=== PATIENT | female | born 1950 | race Caucasian/White ===

== ENCOUNTER 2018-06-04 22:20 | Observation (INO) | payer BC, MEDICARE ==
[~2018-06-04] VITALS: Ht 172.7 cm; Wt 71.2 kg
[~2018-06-04 22:20] MED LIST: AMBIEN5 MG PO; AMITRIPTYLINE H10 MG PO; ASPIR-LOW81 MG PO; ATORVASTATIN CA10 MG PO; BIOTIN PO; CALCIUM 1,0001 EACH PO; CARAFATE1 GM/10 ML PO; CLONAZEPAM0.5 MG PO; DEXAMETHASONE4 MG PO; ESTRODIOL PO; FISH OIL 1,0001 EAC2 PO; HYDROCHLOROTH12.5 MG PO; LEVAQUIN500 MG PO; LEVOTHYROXINE88 MCG PO; LIZNESS PO; LYRICA50 MG PO; MELOXICAM7.5 MG PO; METOPROLOL TART50 MG PO; MULTI-VITAMIN1 EACH PO; PANTOPRAZOLE SO40 MG PO; SPIRONOLACTONE25 MG PO; SYNTHROID100 MCG PO; XIFAXAN550 MG PO; ZANTAC300 MG PO
--- OUTSIDE RECORDS SUMMARY | 2018-06-04 22:22 | XMS REPORT ---
Author Author [facility] Address Unknown Phone Unavailable Care Team Providers Care Chief Human Resources Officer Name Role Phone Lyn LAL Unavailable Unavailable Problems This patient has no known problems. Allergies, Adverse Reactions, Alerts This patient has no known allergies or adverse reactions. Medications This patient has no known medications. Results Test Description Test Time Test Comments Text Results Atomic Results Result Comments CHEST SINGLE (PORTABLE) [place] [address] Patient Name: LORELEI TSANG MR #: [id number] : 1950 Age/Sex: 66/F Req #: [id number] Adm Physician: Ordered by: GISELL LAL MD Report #: [id number] Location: ER Room/Bed: Procedure: [id number] DX/CHEST SINGLE (PORTABLE) Exam Date: 03/15/17 Exam Time: 1552 REPORT STATUS: Signed PROCEDURE: A single AP view of the chest. COMPARISON: Chest radiograph 11/06/2016 and 03/11/2013 INDICATIONS: RAPID HEART RATE FINDINGS: Lines/tubes: None. Lungs: The lungs are well inflated. A new nodular 1.1 cm opacity projects over the left upper lobe between the 4th and 5th ribs. Lungs are otherwise clear. Pleura: There is no pleural effusion or pneumothorax. Heart and mediastinum: The heart and the mediastinum are unremarkable. Bones: No acute bony abnormality. IMPRESSION: New 1.1 cm nodular opacity projects over the left upper lobe and may represent a pulmonary nodule. Consider chest CT for further evaluation. Otherwise, no acute cardiopulmonary disease. Dictated by: Carlos Burciaga M.D. on 03/15/2017 at 16:11 Electronically approved by: Carlos Burciaga M.D. on 03/15/2017 at 16:11 Dictated By: CARLOS BURCIAGA MD [id number] Transcribed By: HERNAN on 03/15/17 1611 COPY TO: GISELL LAL MD
[2018-06-04] MEDS ORDERED: ONDANSETRON HCL INJ 2MG/ML 2ML 2 MG/ML VIAL IV STA (22:26)
[2018-06-04] MEDS ORDERED: NITROGLYCERIN 2% OINT 1 GM PKT TOP ONE (22:30)
[2018-06-04] MEDS ORDERED: ONDANSETRON HCL INJ 2MG/ML 2ML 2 MG/ML VIAL ONE (22:34)
[2018-06-04 22:41] LABS: BASOPHILS # (AUTO) 0.1 (0.0-0.1); BASOPHILS % 1.1 % (0.0-1.0); EOSINOPHILS # (AUTO) 0.2 (0.0-0.4); EOSINOPHILS % 2.4 % (0.0-6.0); HEMATOCRIT 40.4 % (34.2-44.1); HEMOGLOBIN 13.5 g/dL (12.0-16.0); LYMPHOCYTES # (AUTO) 2.3 (1.0-3.2); LYMPHOCYTES % 36.2 % (18.0-39.1); MEAN CORPUSCULAR HEMOGLOBIN 31.2 pg (28-32); MEAN CORPUSCULAR HGB CONC 33.4 g/dL (31-35); MEAN CORPUSCULAR VOLUME 93.3 fL (81-99); MONOCYTES # (AUTO) 0.4 (0.2-0.8); NEUTROPHILS # (AUTO) 3.4 (2.1-6.9); NEUTROPHILS % 53.1 % (38.7-80.0); PLATELET COUNT 305 x10e3/uL (140-360); RED BLOOD COUNT 4.33 x10e6/uL (3.6-5.1); RED CELL DISTRIBUTION WIDTH 13.6 % (11.7-14.4)
[2018-06-04 22:50] LABS: INR 0.82; PROTHROMBIN TIME 12.1 seconds (11.9-14.5)
[2018-06-04 22:51] LABS: PARTIAL THROMBOPLASTIN TIME 33.6 seconds (23.8-35.5)
[2018-06-04 22:52] LABS: BILIRUBIN,URINE NEGATIVE (NEGATIVE); CLARITY,URINE CLEAR (CLEAR); COLOR,URINE YELLOW (YELLOW); KETONES,URINE NEGATIVE (NEGATIVE); LEUKOCYTE ESTERASE ,URINE NEGATIVE (NEGATIVE); NITRITE,URINE NEGATIVE (NEGATIVE); PROTEIN,URINE DIPSTICK NEGATIVE (NEGATIVE); URINE UROBILINOGEN 0.2 mg/dL (0.2 - 1)
[2018-06-04 22:55] LABS: BACTERIA,URINE FEW /HPF; EPITHELIAL CELLS,URINE FEW /LPF; RBC,URINE 0-5 /HPF (0-5); WBC,URINE (MAN) 0-5 /HPF (0-5)
[2018-06-04 23:00] LABS: ALANINE AMINOTRANSFERASE 13 IU/L (0-55); ALBUMIN 4.2 g/dL (3.5-5.0); ALBUMIN/GLOBULIN RATIO 1.4 (0.8-2.0); ALKALINE PHOSPHATASE 67 IU/L (40-150); ANION GAP 16.4 mmol/L (8-16); BLOOD UREA NITROGEN 8 mg/dL (7-26); BUN/CREATININE RATIO 11 (6-25); CALCIUM 9.5 mg/dL (8.4-10.2); CARBON DIOXIDE 21 mmol/L (22-29); CHLORIDE 101 mmol/L (98-107); CREATINE KINASE 39 IU/L (29-168); CREATININE, SERUM 0.73 mg/dL (0.57-1.11); EST GLOMERULAR FILTRATION RATE > 60 ML/MIN (60-); GLUCOSE 111 mg/dL (74-118); POTASSIUM 3.4 mmol/L (3.5-5.1); SODIUM 135 mmol/L (136-145)
[2018-06-04] MEDS ORDERED: BIOTIN800 MCG PO (23:37)
[2018-06-04] MEDS ORDERED: B COMPLEX1 EACH PO (23:37)
[2018-06-04] MEDS ORDERED: RANITIDINE HCL150 MG PO (23:37)
[2018-06-04] MEDS ORDERED: CO Q-10 100 MG1 EACH PO (23:38)
[2018-06-04] MEDS ORDERED: MAGNESIUM OXID400 MG PO (23:38)
[2018-06-04] MEDS ORDERED: [UNRECOGNIZED DRUG - OTHER] OU (23:41)
[2018-06-04] MEDS ORDERED: XIIDRA OU (23:41)
[2018-06-04] MEDS ORDERED: POTASSIUM CHLORIDE 20 MEQ TAB CR PO STA (23:51)
[2018-06-05] VITALS (8 sets, daily range): BP systolic 132–158; BP diastolic 67–78
[2018-06-05] MEDS ORDERED: NITROGLYCERIN 0.4 MG SUBL SL PRN
[2018-06-05] MEDS ORDERED: ONDANSETRON HCL INJ 2MG/ML 2ML 2 MG/ML VIAL IV PRN
[2018-06-05] MEDS ORDERED: [UNRECOGNIZED DRUG - OTHER] OU SCH
[2018-06-05] MEDS ORDERED: FAMOTIDINE 20 MG/2 ML VIAL IV SCH
[2018-06-05] MEDS ORDERED: SUCRALFATE 1 GM/10 ML SUSP PO PRN
--- NOTE | 2018-06-05 00:04 | Diagnostic Imaging Report ---
CHEST SINGLE (PORTABLE), 06/04/2018 10:24 PM Technique: CHEST SINGLE (PORTABLE) Comparison: 03/15/2017 Clinical history: Chest pain Findings: See Impression Impression: Limited portable technique. 1. Stable/normal cardiomediastinal silhouette. 2. No consolidation or edema. Previously measured left upper lung nodule is not appreciated but may be obscured by technique/overlying lead. Consider follow-up upright PA and lateral. 3. No effusion or pneumothorax. Signed by: Dr Eloise Jolley MD on 06/05/2018 12:01 AM
[2018-06-05] MEDS ORDERED: ARTIFICIAL TEARS (OPTH) 15 ML BTL OU PRN (00:35)
[2018-06-05 05:47] LABS: CHOL/HDL RATIO 3.4 (3.0-3.6)
[2018-06-05] MEDS ORDERED: NITROGLYCERIN 2% OINT 1 GM PKT TOP SCH (06:00)
[2018-06-05 07:32] LABS: CREATINE KINASE MB 0.5 ng/mL (0-5.0)
--- NOTE | 2018-06-05 08:10 | NUR ---
patient resting in bed, not in any distress call light in reach
[2018-06-05] MEDS: ASPIRIN 81 MG ENTERIC COATED PO SCH (08:20)
[2018-06-05] MEDS: MAGNESIUM OXIDE 400 MG TAB PO SCH (08:20)
[2018-06-05] MEDS: MULTIVITAMINS/MINERALS TAB PO SCH (08:20)
[2018-06-05] MEDS ORDERED: NON-FORMULARY MEDICATION (Vitamin B Complex (B Complex) 1 TAB) PO SCH (09:00)
[2018-06-05] MEDS: VIT E ACETATE PO SCH (09:00)
[2018-06-05] MEDS: XIIDRA OU SCH ×2 (09:00→16:44)
[2018-06-05] MEDS ORDERED: NON-FORMULARY MEDICATION (Biotin 1,000 MCG) PO SCH (09:00)
[2018-06-05] MEDS ORDERED: VIT E ACETATE PO SCH (09:00)
[2018-06-05] MEDS ORDERED: BIOTIN 1000 MCG PO SCH (09:00)
[2018-06-05] MEDS ORDERED: LEVOTHYROXINE SODIUM 88 MCG TAB PO SCH (09:00)
[2018-06-05] MEDS: NON-FORMULARY MEDICATION (Biotin 1,000 MCG) PO SCH (09:00)
[2018-06-05] MEDS ORDERED: UBIDECARENONE PO SCH (09:00)
[2018-06-05] MEDS ORDERED: XIIDRA OU SCH (09:00)
[2018-06-05] MEDS: UBIDECARENONE PO SCH (09:00)
[2018-06-05] MEDS ORDERED: KETOROLAC TROMETHAMINE 30 MG/ML VIAL IV ONE (10:30)
--- NOTE | 2018-06-05 10:59 | NUR ---
SOCIAL WORK INITIAL ASSESSMENT [employer] Clerk to bedside to discuss plan of care with patient/family. CM/SW role and care transitions discussed. Anticipated discharge plan discussed along with duration of care. CM/SW discussed patients right to make decisions in care. CM/SW work hours given. Patient lives: IN OWN HOUSE WITH AND FAMILY Admit/Transfer: VIA ED FROM HOME POA/Emergency contact: WENDY [phone] Current/Previous Home Health: NONE PCP/Follow-up Care: KERAT Current/Previous DME: NONE Other Services: NONE Employment Status: HOUSEWIFE Areas of Concerns: NONE Referral Needs: NONE Education Needs: NONE IMM/KIM given and signed (if applicable): NA Goal for discharge: RETURN HOME CM/SW left business card at the bedside with contact information. Name and number was also written on the patients whiteboard. Patient verbalized understanding of discussion. CM will follow-up with ongoing discharge and transition of care needs.
--- NOTE | 2018-06-05 12:45 | NUR ---
patient c/o strong head ache, center of head , stated Toradol IV didnt work for her, the pain is now like pricking with needle, paged Dr Gomez
--- NOTE | 2018-06-05 13:29 | Consultation ---
DATE OF CONSULTATION: June 05, 2018 CARDIOLOGY CONSULTATION Ms. Winn is a pleasant 68-year-old woman, retired pre school manager who presented to the emergency room overnight with a complaint of left arm discomfort. HISTORY OF PRESENT ILLNESS: Patient reports that she had a headache over the weekend, and then her left neck and left arm began hurting. She found her blood pressure was elevated. Decided she needed to come to the emergency room. PAST MEDICAL HISTORY: Significant for hospitalization at [facility] in October of 2016 for chest discomfort at which time evaluation suggested esophageal origin. She had a Lexiscan Myoview at that time that showed normal perfusion. Normal EF of 74% on November 09, 2016. Since that time, she has also seen another clerical receptionist for continuing PVCs, and reports that she had a cardiac MRI in 2018 that she was told was normal. Past medical history also significant for hypertension, depression, hypothyroidism, endoscopy in 2010 showing esophagitis, Donnie's thyroiditis treated with hemithyroidectomy in 2014. MEDICATIONS: She is not familiar with them all, but adds that she added a 2nd stomach medicine lately. PERSONAL/SOCIAL HISTORY: She is as retired, but she is active. She does not smoke or drink. PHYSICAL EXAMINATION HEENT: Unremarkable. NECK: No jugular venous distention. THORAX: Heart sounds S1 and S2 are equal. No murmurs. LUNGS: Clear. The left arm is nontender to elevation and rotation. ABDOMEN: Normal bowel sounds. Nontender. EXTREMITIES: No cyanosis, clubbing or edema. EKG is normal. Cardiac enzymes are normal. Cholesterol 191, HDL 56, LDL 119, triglycerides normal at 81. ASSESSMENT 1. Neck and shoulder discomfort, etiology not clear. 2. History of premature ventricular contractions with none seen on current telemetry strips. PLAN: Patient has already received potassium and analgesics. As she had the previous normal Cardiolite and more recently normal cardiac MRI, would not recommend any further cardiac evaluation at this time. Thank you for asking me to see her in consultation. Job#: [id number] RI cc:MISAEL SERVIN MD
[2018-06-05 13:44] LABS: CREATINE KINASE 27 IU/L (29-168)
--- NOTE | 2018-06-05 13:46 | NUR ---
New order recvd from Dr Gomez to CT of brain rosemary, babs prn q6
[2018-06-05] MEDS: HYDROCODONE/APAP 5MG-325MG TAB PO PRN ×2 (14:51→20:33)
[2018-06-05] MEDS: FAMOTIDINE 20 MG TAB PO SCH (15:34)
--- NOTE | 2018-06-05 16:36 | Diagnostic Imaging Report ---
Examination: CT head without contrast Clinical Indication: Headache; left arm pain. Technique: Transaxial noncontrast images from the skull base through the vertex were obtained. Sagittal and coronal reformatted images were done. Dose modulation, iterative reconstruction, and/or weight based adjustment of the mA/kV was utilized to reduce the radiation dose to as low as reasonably achievable. Comparison: Head CT dated 04/12/2013. Findings: Scalp: No abnormalities. Bones: Intact. No fractures. No blastic or lytic lesions. Brain sulci: Appropriate for patient's age. Ventricles: Normal in size and configuration. No hydrocephalus. Extra-axial space: No abnormalities. Parenchyma: No abnormal densities. No masses, hemorrhage, or acute or chronic cortical based vascular insults. Suprasellar region: No abnormalities. Craniocervical junction: The foramen magnum is patent. No Chiari one malformation. Incidental findings: Atherosclerotic calcification of the cavernous and supraclinoid internal carotid arteries. Impression: No new or acute intracranial abnormality when compared to prior head CT dated 04/12/2013. Signed by: Dr. Stephanie Magallanes M.D. on 06/05/2018 4:33 PM
--- NOTE | 2018-06-05 16:39 | Diagnostic Imaging Report ---
Examination: CT CERVICAL SPINE WITHOUT CONTRAST HISTORY:Neck and left arm pain. COMPARISON:None. TECHNIQUE: Multidetector helical axial images were obtained without contrast from the foramen magnum to T1. Coronal and sagittal reformatted images were done. Bone and soft tissue windows were evaluated. Dose modulation, iterative reconstruction, and/or weight based adjustment of the mA/kV was utilized to reduce the radiation dose to as low as reasonably achievable. FINDINGS: Alignment:Normal alignment width straightening of normal lordosis. Vertebrae: Normal height and density. No acute fracture, infection or neoplasm. Disc space heights: Normal height. Caliber of spinal canal: Developmentally normal. Posterior fossa and craniocervical junction: Foramen magnum patent. No Chiari 1 malformation. Soft tissues: No abnormality. Degenerative changes: C5-C6: Diffuse disc osteophyte complex and and bilateral uncovertebral arthropathy results in moderate right neural foraminal narrowing. No left foraminal or canal stenosis C6-C7: Diffuse disc osteophyte complex and bilateral uncovertebral arthropathy result in moderate bilateral neural foraminal narrowing. No canal stenosis. Remaining cervical levels demonstrate no disc bulge/ herniation or foraminal or canal stenosis. Visualized lung apices: No abnormalities. IMPRESSION: 1. No acute abnormalities. 2. Mild degenerative changes at C5-C6 and C6-C7, as above. Signed by: Dr. Stephanie Magallanes M.D. on 06/05/2018 4:36 PM
--- NOTE | 2018-06-05 16:57 | Diagnostic Imaging Report ---
Exam: Left shoulder 2 views History: Pain Comparison: None. Findings: No fracture or malalignment. Joint spaces preserved. No abnormal soft tissue calcification or soft tissue defect. Impression: No acute osseous abnormality Signed by: Dr. Brenden Sinclair M.D. on 06/05/2018 4:53 PM
[2018-06-06] VITALS: BP 134/77
[2018-06-06 04:00] VITALS: BP 130/80
[2018-06-06] MEDS ORDERED: LEVOTHYROXINE SODIUM 88 MCG TAB PO SCH (06:00)
[2018-06-06] MEDS: HYDROCODONE/APAP 5MG-325MG TAB PO PRN (06:30)
[2018-06-06] MEDS: FAMOTIDINE 20 MG TAB PO SCH (07:30)
[2018-06-06] MEDS ORDERED: PANTOPRAZOLE SOD 40 MG TABEC PO SCH (07:30)
--- NOTE | 2018-06-06 07:52 | NUR ---
Patient resting in bed, c/o head ache, pain level 2/10, not in any distress, call light in reach, keep monitoring
[2018-06-06] MEDS: VIT E ACETATE PO SCH (08:21)
[2018-06-06] MEDS: NON-FORMULARY MEDICATION (Biotin 1,000 MCG) PO SCH (08:21)
[2018-06-06] MEDS: XIIDRA OU SCH (08:21)
[2018-06-06] MEDS: ASPIRIN 81 MG ENTERIC COATED PO SCH (08:21)
[2018-06-06] MEDS: MULTIVITAMINS/MINERALS TAB PO SCH (08:21)
[2018-06-06] MEDS: UBIDECARENONE PO SCH (08:21)
[2018-06-06] MEDS: MAGNESIUM OXIDE 400 MG TAB PO SCH (08:21)
[2018-06-06 08:26] VITALS: BP 132/68
[2018-06-06] MEDS ORDERED: FAMOTIDINE 20 MG/2 ML VIAL IV SCH (09:00)
[2018-06-06 09:22] VITALS: BP 132/68
[2018-06-06 10:27] LABS: ANION GAP 13.4 mmol/L (8-16); BLOOD UREA NITROGEN 6 mg/dL (7-26); BUN/CREATININE RATIO 9 (6-25); CALCIUM 9.1 mg/dL (8.4-10.2); CARBON DIOXIDE 26 mmol/L (22-29); CHLORIDE 96 mmol/L (98-107); EST GLOMERULAR FILTRATION RATE > 60 ML/MIN (60-); GLUCOSE 92 mg/dL (74-118); POTASSIUM 4.4 mmol/L (3.5-5.1); SODIUM 131 mmol/L (136-145)
[2018-06-06] MEDS: ONDANSETRON HCL INJ 2MG/ML 2ML 2 MG/ML VIAL IV PRN ×2 (10:30→14:11)
--- NOTE | 2018-06-06 10:30 | NUR ---
Patient c/o nausea when she up in bed, New order recvd from Dr Gomez for zofran 4mg q4 PRN, Patient recvd 1 dose
[2018-06-06 11:43] VITALS: BP 130/71
--- NOTE | 2018-06-06 16:35 | NUR ---
Dr Brenner here for rounds, stated from her stand point patient can go home, prescriptions in the chart, Paged Dr Gomez for Discharge order
[2018-06-06 16:38] VITALS: BP 133/70
[2018-06-06] MEDS ORDERED: GABAPENTIN100 MG PO (17:59)
[2018-06-06] MEDS ORDERED: PIROXICAM10 MG PO (18:01)
[2018-06-06] MEDS ORDERED: CYCLOBENZAPRINE10 MG PO (18:02)
[2018-06-06] MEDS ORDERED: ZOFRAN4 MG PO (18:03)
--- NOTE | 2018-06-06 18:15 | NUR ---
Recvd call from Dr Gomez to Discharge patient , but the patient need to f/up with pcp to recheck BMP Lab, especially sodium level. Got clearance from Dr Ricks and Dr Brenner,
--- NOTE | 2018-06-06 19:04 | NUR ---
patient discharged home, prescription given, patient verbalized understanding regarding medications, IV canula removed with tip intact, no ss of infiltration, Tele box returned, no distress noted, at bed side giving ride, transported via to [facility]
--- NOTE | 2018-06-06 21:03 | Consultation ---
DATE OF CONSULTATION: June 06, 2018 NEUROLOGY CONSULT NOTE HISTORY OF PRESENT ILLNESS: Ms. Winn is a 68-year-old right hand dominant woman with past medical history significant for hyperlipidemia, frequent premature ventricular contractions, and gastroesophageal reflux disease, admitted to [facility] on June 04, 2018, with head pain, chest pain/discomfort, and left arm pain. The neurology service is consulted to evaluate and treat the patient's head pain. Ms. Winn endorses pain over the vertex of the skull, which she describes as tightness as well as a pins and needles sensation. This pain began approximately 3 to 4 days ago and is constant, but waxes and wanes in intensity. In addition to this pain, the patient endorses tightness/spasm of the cervical paraspinous and trapezius muscles with radiation over the jaw, forehead, and occiput. There are no other symptoms associated with the above described pain. Specifically, the patient does not report visual disturbance, dysarthria, aphasia, facial droop, hemiparesis, hemihypoesthesia, impairments of balance or gait, dizziness, confusion, photophobia, or phonophobia. The patient does report mild nausea without vomiting, but believes this is a reaction to the severity of her pain. Ms. Winn does endorse a prior history of neck pain and stiffness. She has a prior history of tension type headaches treated with a variety of oral medications, including amitriptyline and nortriptyline. The patient does not report tenderness on palpation over any part of the skull. While in the hospital, the patient has received Toradol and [place] for pain. Unfortunately, neither medication improved her symptoms. REVIEW OF SYSTEMS: Chest pain, left arm pain, nausea, head pain. Otherwise, 12-point review of systems is negative. PAST MEDICAL HISTORY: Hyperlipidemia, frequent premature ventricular contractions, thyroid disease, gastroesophageal reflux disease. PAST SURGICAL HISTORY: Thyroid lobectomy, total hysterectomy, cholecystectomy, tonsillectomy, bilateral cataract removal. PAST HOSPITALIZATIONS: Surgeries/procedures as listed, palpitations/irregular heartbeat. FAMILY MEDICAL HISTORY: The patient's paternal and maternal grandparents are . Their medical histories are unknown. The patient's father is alive and has hypertension. Ms. Winn's mother is from ovarian cancer. She had a history of hypertension as well. The patient has one sibling, a brother, who is alive and has hypertension. Ms. Winn has 3 children, 1 son and 2 daughters, all of whom are alive and healthy. SOCIAL HISTORY: The patient is . She is retired. Ms. Winn does not report current or prior tobacco, alcohol, or recreational drug use. HOME MEDICATIONS: Biotin 1000 mcg by mouth daily, calcium with vitamin D 1 tablet by mouth daily, levothyroxine 88 mcg by mouth daily, magnesium oxide 400 mg by mouth daily, multivitamin 1 tablet by mouth daily, fish oil 1000 mg by mouth daily, Protonix 40 mg by mouth daily, ranitidine 150 mg by mouth daily, Carafate 1 g by mouth daily as needed, coenzyme Q10 200 mg by mouth daily, vitamin B complex 1 tablet by mouth daily, biotin 1000 mcg by mouth daily, Mayelin Tears, and Xiidra drops. ALLERGIES: CODEINE. NO KNOWN FOOD ALLERGIES. NO KNOWN ALLERGIES TO LATEX. NO KNOWN ALLERGIES TO IODINE OR OTHER CONTRAST MATERIAL. PHYSICAL EXAMINATION: VITAL SIGNS: Height 60 inches, weight 157 pounds, BMI 23.9 kg per meter squared. Blood pressure 130/71 mmHg, pulse 65 beats per minute, respiratory rate 16 breaths per minute, oxygen saturation 98% on room air. GENERAL: The patient is awake and alert, does not appear distressed. HEENT: Normocephalic, atraumatic. Pupils are surgical. Moist mucous membranes. There is tenderness with palpation over the left greater occipital nerve. NECK: Supple. No appreciable thyromegaly. No appreciable carotid bruits. Mild spasm of the cervical, paraspinous and trapezius muscles. CARDIOVASCULAR: S1, S2. Regular rate and rhythm. No rubs or gallops. A low-grade systolic ejection murmur is best heard at the left lower sternal border. RESPIRATORY: Clear to auscultation bilaterally. No wheezes, rhonchi, or rales. EXTREMITIES: The skin is warm and dry. No clubbing, cyanosis, or edema. The posterior tibial and dorsalis pedis pulses are 2+ and symmetric. NEUROLOGIC Memory/Attention: The patient is awake and alert. Oriented to person, place, time, and situation. Cranial Nerves: Cranial nerve I--not tested. Cranial nerve II, III, IV, and --pupils are surgical. Extraocular movements intact. No nystagmus. Cranial nerve V--sensation to light touch and pinprick is intact in the bilateral V1 through V3 distributions. Strength of the temporalis and masseter muscles is within normal limits. Cranial nerve VII--the face is symmetric as are all facial movements. Strength is within normal limits. Cranial nerve VIII--hearing is intact to finger rub bilaterally. Cranial nerve IX, X--the soft palate elevates equally and symmetrically. Cranial nerve XI--normal strength of the bilateral sternocleidomastoid and trapezius muscles. Cranial nerve XII--the tongue protrudes in midline and moves symmetrically from side to side. Strength: Bulk is normal. Strength is 5/5 in the bilateral deltoids, biceps, triceps, wrist flexors and extensors, finger flexors and extensors, intrinsic hand muscles, hip flexors, knee flexors and extensors, ankle dorsiflexion and plantar flexion, and intrinsic foot muscles. Tone is normal. DTRs: Deep tendon reflexes are 2+ and symmetric at the triceps, biceps, brachioradialis, patellas, and Achilles. Plantar responses are flexor bilaterally. Sensation: Sensation is intact to light touch and pinprick in both arms and both legs. Cerebellar: Qbwnsh-bghp-pfomns and heel-olvera movements are intact without dysmetria or other impairment. Gait: Deferred. Speech: Spontaneous speech is normal without appreciable dysarthria or aphasia. Repetition is intact. Involuntary Movements: None. Pronator Drift: None. LABORATORY DATA: The most recent basic metabolic panel is significant for sodium of 131, chloride 96, and BUN of 6. Cardiac enzymes are negative times 3. A liver function panel drawn on June 04, 2018, was unremarkable. Total cholesterol 191, triglycerides 81, LDL cholesterol 119, HDL cholesterol 56. The CBC with differential and platelets is unremarkable. The coagulation profile is within normal limits. A urinalysis is unremarkable. DIAGNOSTIC STUDIES: Electrocardiogram, 06/04/2018: Normal sinus rhythm at 78 beats per minute. Chest x-ray, 06/04/2018: Limited portable technique. 1. Stable/normal cardiomediastinal silhouette. 2. No consolidation or edema. Previously measured left upper lung nodule is not appreciated, but may be obscured by technique/overlying lead. Consider followup upright PA and lateral. 3. No effusion or pneumothorax. Shoulder x-ray, 06/05/2018: No acute osseous abnormality. CT of the cervical spine, 06/05/2018: Mild to moderate degenerative disk disease at C5-C6 and C6-C7. No acute abnormalities are appreciated. CT of the brain without contrast, 06/05/2018: On my review, there is no evidence of recent large territorial ischemia, hemorrhage, mass, or mass effect. There is no evidence of remote large territorial ischemia or hemorrhage. Cerebral volumes are appropriate for age. There are no findings suggestive of chronic small vessel ischemic disease. ASSESSMENT AND PLAN: Ms. Winn has, at the very least, a left greater occipital neuralgia, probably secondary to cervical spondylosis resulting in neck pain, stiffness, and limited range of motion of the cervical spine. The patient's neurological examination is unremarkable. Her laboratory data and other diagnostic studies have been reviewed and are documented above. RECOMMENDATIONS: 1. For treatment of neuralgiform pain, gabapentin 100 mg by mouth 3 times daily will be prescribed. The possible side effects of this medication were discussed in detail with the patient. 2. For treatment of neck pain, stiffness, and limited range of motion--piroxicam 10 mg by mouth daily with either food or milk and cyclobenzaprine 10 mg by mouth 3 times daily as needed for muscle spasm will be prescribed. The possible side effects of these medications were discussed in detail with the patient. A referral to physical therapy is recommended. There are no other recommendations from the neurology service at this time. Ms. Winn may be discharged to home. Thank you for this consultation. TIME SPENT: 50 minutes. Job#: [id number] TOBIAS ULLOA
--- NOTE | 2018-06-07 06:32 | NUR ---
Visit made by the Spiritual Care Department Pastoral Visitor, Kaitlynn Martin. Pt out of room and no family at bedside. A card was left at the bedside to indicate a missed visit from a member of the Spiritual Care team and to inform the pt and family of the availability of a Film Mounter 24 hours a day/7 days a week. A social services will follow up as able. [facility] O: [phone] Pager: [phone] calling from) Addendum: 06/07/18 at 0634 by Merlin Jackson CHAP CORRECTION: Attempted visit took place 06/06/18 at approximately 1345 hrs. [facility]
== END 2018-06-06 19:04 | disposition home or self-care (01) ==
LOC: ER 22:20 → ERHOLD 06-05 → IMCU 06-05 00:20
PROVIDERS: ADMIT Internal Medicine; ATTEND Internal Medicine
DX: R07.89 Other chest pain (principal); E03.9 Hypothyroidism, unspecified; F41.1 Generalized anxiety disorder; M54.2 Cervicalgia; G44.209 Tension-type headache, unspecified, not intractable; E78.5 Hyperlipidemia, unspecified; K21.9 Gastro-esophageal reflux disease without esophagitis; M54.81 Occipital neuralgia
CPT/HCPCS: 36415 ×2; 70450; 71045; 72125; 73030; 80048; 80053; 80061; 81001; 82550; 82553; 84484; 85025; 85610; 85730; 93005; 96374; 99284; G0378 ×2; J1885; J2405 ×3; S0164

== ENCOUNTER → 2020-04-08 | Day surgery (SDC) | payer BC ==
[~2020-04-08] MED LIST changes: +ACETAMINOPHEN 325 MG TAB ONE; +B COMPLEX1 EACH PO; +BALANCED SALT SOLN (OPTH) 15 ML BTL IO ONE; +BIOTIN800 MCG PO; +CO Q-10 100 MG1 EACH PO; +CYCLOBENZAPRINE10 MG PO; +CYMBALTA30 MG PO; +GABAPENTIN100 MG PO; +LIDOCAINE 2% /EPINEPHRINE 20 ML SDV INJ ONE; +LIDOCAINE HCL 2% LOCAL INJ 5 ML SDV VIAL INJ ONE; +LIVALO1 MG PO; +MAGNESIUM OXID400 MG PO; +MIDAZOLAM HCL 5 MG/ML VIAL ONE; +NEOMYCIN/POLYMYXIN/DEX (OPTH) 3.5 GM TUBE ONE; +PIROXICAM10 MG PO; +POVIDONE IODINE 5% (OPTH) 30 ML BTL ONE; +PRESERVISION A1 EAC2 PO; +PROPOFOL IV EMULSION 10 MG/ML 20 ML VIAL ONE; +RANITIDINE HCL150 MG PO; +SOTALOL80 MG PO; +XIIDRA OU; +ZOFRAN4 MG PO; +[UNRECOGNIZED DRUG - OTHER] OU
[2020-04-08 16:50] VITALS: BP 131/77
== END | disposition home or self-care (01) ==
LOC: OR 12:34
PROVIDERS: ATTEND Ophthalmology
DX: H02.834 Dermatochalasis of left upper eyelid (principal); H02.831 Dermatochalasis of right upper eyelid; E03.9 Hypothyroidism, unspecified; I10 Essential (primary) hypertension; I49.3 Ventricular premature depolarization; K21.9 Gastro-esophageal reflux disease without esophagitis; Z88.6 Allergy status to analgesic agent; Z01.812 Encounter for preprocedural laboratory examination; Z20.828 Contact with and (suspected) exposure to other viral communicable diseases
CPT/HCPCS: 15823; J2001 ×2; J2250; J2704; U0002

== ENCOUNTER 2024-07-14 00:08 | Emergency (ER) | payer OTHER, MEDICARE ==
[~2024-07-14] VITALS: Ht 172.7 cm; Wt 66.7 kg
[~2024-07-14 00:08] MED LIST changes: -ACETAMINOPHEN 325 MG TAB ONE; -BALANCED SALT SOLN (OPTH) 15 ML BTL IO ONE; -LIDOCAINE 2% /EPINEPHRINE 20 ML SDV INJ ONE; -LIDOCAINE HCL 2% LOCAL INJ 5 ML SDV VIAL INJ ONE; -MIDAZOLAM HCL 5 MG/ML VIAL ONE; -NEOMYCIN/POLYMYXIN/DEX (OPTH) 3.5 GM TUBE ONE; -POVIDONE IODINE 5% (OPTH) 30 ML BTL ONE; -PROPOFOL IV EMULSION 10 MG/ML 20 ML VIAL ONE
[2024-07-14 02:04] LABS: BASOPHILS # (AUTO) 0.1 (0.0-0.1); BASOPHILS % 0.8 % (0.0-1.0); EOSINOPHILS # (AUTO) 0.2 (0.0-0.4); EOSINOPHILS % 2.1 % (0.0-6.0); HEMATOCRIT 43.8 % (34.2-44.1); LYMPHOCYTES # (AUTO) 2.3 (1.0-3.2); MEAN CORPUSCULAR HEMOGLOBIN 31.8 pg (28-32); MEAN CORPUSCULAR HGB CONC 34.2 g/dL (31-35); MONOCYTES # (AUTO) 0.6 (0.2-0.8); MONOCYTES % 6.5 % (4.4-11.3); NEUTROPHILS # (AUTO) 5.7 (2.1-6.9); NEUTROPHILS % 64.3 % (38.7-80.0); PLATELET COUNT 243 x10e3/uL (140-360); RED BLOOD COUNT 4.71 x10e6/uL (3.6-5.1); RED CELL DISTRIBUTION WIDTH 12.5 % (11.7-14.4); WHITE BLOOD COUNT 8.88 x10e3/uL (4.8-10.8)
[2024-07-14 02:09] LABS: ALBUMIN 4.5 g/dL (3.5-5.0); ALBUMIN/GLOBULIN RATIO 1.5 (0.8-2.0); ANION GAP 17.3 mmol/L (8-16); BILIRUBIN,TOTAL 0.4 mg/dL (0.2-1.2); CALCIUM 9.6 mg/dL (8.4-10.2); CREATININE, SERUM 0.67 mg/dL (0.57-1.11); POTASSIUM 4.3 mmol/L (3.5-5.1); TOTAL PROTEIN 7.6 g/dL (6.5-8.1)
[2024-07-14 02:11] LABS: COLOR,URINE YELLOW (YELLOW)
[2024-07-14 02:12] LABS: BILIRUBIN,URINE NEGATIVE (NEGATIVE); CLARITY,URINE CLEAR (CLEAR); GLUCOSE, URINE NEGATIVE (NEGATIVE); KETONES,URINE 1+ (NEGATIVE); LEUKOCYTE ESTERASE ,URINE NEGATIVE (NEGATIVE); NITRITE,URINE NEGATIVE (NEGATIVE); PH,URINE 7.5 (5 - 7); PROTEIN,URINE DIPSTICK NEGATIVE (NEGATIVE); URINE UROBILINOGEN 0.2 mg/dL (0.2 - 1)
[2024-07-14 02:39] LABS: RBC,URINE 0-5 /HPF (0-5); WBC,URINE (MAN) 0-5 /HPF (0-5)
[2024-07-14 02:40] LABS: BACTERIA,URINE FEW /HPF; EPITHELIAL CELLS,URINE FEW /LPF
[2024-07-14 02:47] VITALS: PULSE 65; RESP 18; TEMP 98.1; O2SAT 98
== END 2024-07-14 03:01 | disposition home or self-care (01) ==
LOC: ER 00:15
DX: R42 Dizziness and giddiness (principal); I10 Essential (primary) hypertension; R51.9 Headache, unspecified; E78.5 Hyperlipidemia, unspecified; K21.9 Gastro-esophageal reflux disease without esophagitis; R94.31 Abnormal electrocardiogram [ECG] [EKG]
CPT/HCPCS: 36415; 70450; 71045; 80053; 81001; 84484; 85025; 99284